=== PATIENT | male | born 1980 | race Two or more races ===

== ENCOUNTER 2017-09-11 23:26 | Emergency (ER) | payer SELFPAY ==
[~2017-09-11] VITALS: Ht 170.2 cm; Wt 86.2 kg
[2017-09-11 23:34] VITALS: BP 148/89
[2017-09-12 00:06] LABS: APPEARANCE,URINE CLEAR (CLEAR); BILIRUBIN,URINE NEGATIVE (NEGATIVE); BLOOD, URINE NEGATIVE Ery/uL (NEGATIVE); COLOR,URINE ORANGE (YELLOW); KETONES,URINE TRACE (NEGATIVE); LEUKOCYTE ESTERASE ,URINE NEGATIVE (NEGATIVE); NITRITE, URINE POSITIVE (NEGATIVE); PH,URINE 6.5 (5.0-8.0); PROTEIN,URINE NEGATIVE (NEGATIVE); UGLUCOSE NEGATIVE (NEGATIVE)
[2017-09-12 00:11] LABS: BACTERIA,URINE None seen /HPF (None Seen); MUCUS,URINE Rare /LPF (None Seen); RBC,URINE NONE SEEN /HPF (0-2); SQUAMOUS EPITHELIAL CELL,UR Few /HPF (None Seen)
[2017-09-12] MEDS ORDERED: CEFTRIAXONE 500 MG VIAL ONE (02:52)
[2017-09-12] MEDS ORDERED: CEFTRIAXONE 1 G VIAL IM ONE (03:00)
[2017-09-12] MEDS ORDERED: AZITHROMYCIN 250 MG TABLET PO ONE (03:00)
[2017-09-12] MEDS ORDERED: AZITHROMYCIN 250 MG TABLET ONE (03:00)
--- NOTE | 2017-09-12 03:57 | NUR ---
PT DISCHARGED WITHOUT DISCHARGE PAPERWORK. VSS UPON DISCHARGE.
== END 2017-09-12 03:59 | disposition home or self-care (01) ==
LOC: ER 23:31
DX: N45.2 Orchitis (principal); N43.3 Hydrocele, unspecified; N48.9 Disorder of penis, unspecified
CPT/HCPCS: 76870-TC; 81000-TC; 87086-TC; A4606; J0696; Z7610